=== PATIENT | male | born 1985 | race Two or more races ===

== ENCOUNTER 2019-11-04 00:59 | Emergency (ER) | payer OTHER ==
--- NOTE | 2019-11-04 01:26 | EDM.PDOC ---
ED HPI GENERAL MEDICAL PROBLEM - General Chief Complaint: Wound Recheck Stated Complaint: PAIN POST SURGERY Time Seen by Provider: 11/04/19 01:22 Source of Information: Reports: Patient History Limitations: Reports: No Limitations - History of Present Illness INITIAL COMMENTS - FREE TEXT/NARRATIVE: pt arrived with pain in his flank radiating to the groin. pt had a stent placed and letotrpsy on Tuesday. He was told that he had 2 stones removed and a stent was placed. Onset: Today, Other (pt had a sudden onset of flank and groin pain) Duration: Hour(s): Location: Reports: Abdomen, Back Associated Symptoms: Reports: No Other Symptoms Treatments PEDIATRIC PHYSIATRIST: Reports: Other Medication(s) Other Treatments PEDIATRIC PHYSIATRIST: oxycodone Right Flank Pain Score (Numeric/FACES): 2 - Related Data Allergies Allergy/AdvReac Type Severity Reaction Status Date / Time No Known Allergies Allergy Verified 11/04/19 01:19 ED ROS GENERAL - Review of Systems Review Of Systems: See Below Constitutional: Reports: No Symptoms HEENT: Reports: No Symptoms Respiratory: Reports: No Symptoms Cardiovascular: Reports: No Symptoms, Other Endocrine: Reports: No Symptoms GI/Abdominal: Reports: Abdominal Pain, Other (pt had flank pain and pain radiating to the groin. ) : Reports: Flank Pain, Hematuria, Other ( groin pain. ) Musculoskeletal: Reports: No Symptoms Skin: Reports: No Symptoms ED EXAM, GENERAL - Physical Exam Exam: See Below Free Text/Narrative:: pt arrived with a history of severe pain in the rt flank radiating to the groin. He is having very gross hematuria tonight. He is not on bblood thinners. He had lithotripsy and a stent placed on . He was told that 2 stones were removed. Exam Limited By: No Limitations General Appearance: Alert, Anxious, Mild Distress, Other (pt did have severe distress at home. ) Ears: Normal TMs Nose: Normal Inspection Throat/Mouth: Normal Inspection Head: Atraumatic Neck: Normal Inspection Respiratory/Chest: No Respiratory Distress Cardiovascular: Regular Rate, Rhythm GI/Abdominal: Soft, Non-Tender (Male) Exam: Other (pt had flank pain and rt groin pain earlier. ) Rectal (Males) Exam: Deferred Back Exam: CVA Tenderness (R) Extremities: Normal Inspection Course - Vital Signs Last Recorded V/S: Last Vital Signs Temp 36.3 C 11/04/19 01:23 Pulse 82 11/04/19 01:23 Resp 15 11/04/19 01:23 BP 154/93 H 11/04/19 01:23 Pulse Ox 98 11/04/19 01:23 - Orders/Labs/Meds Orders: Active Orders 24 hr Category Date Time Status CULTURE URINE [RM] Stat Lab 11/04/19 01:48 Received Sodium Chloride 0.9% [Normal Saline] 1,000 ml Med 11/04/19 01:45 Active IV ASDIRECTED cefTRIAXone [Rocephin] 1 gm Med 11/04/19 03:31 Active Sodium Chloride 0.9% [Normal Saline] 50 ml IV ONETIME Medication Orders Sodium Chloride (Normal Saline) 1,000 mls @ 999 mls/hr IV ASDIRECTED SARTHAK Last Admin: 11/04/19 02:41 Dose: 999 mls/hr Documented by: WILMAN Ceftriaxone Sodium 1 gm/ (Sodium Chloride) 50 mls @ 100 mls/hr IV ONETIME ONE Stop: 11/04/19 04:00 Labs: Laboratory Tests 11/04/19 Range/Units 01:55 WBC 12.9 H (4.5-11.0) K/uL RBC 4.66 (4.30-5.90) M/uL Hgb 14.3 (12.0-15.0) g/dL Hct 42.4 (40.0-54.0) % MCV 91 (80-98) fL MCH 31 (27-31) pg MCHC 34 (32-36) % Plt Count 108 L (150-400) K/uL Neut % (Auto) 65 (36-66) % Lymph % (Auto) 22 L (24-44) % [place] % (Auto) 13 H (2-6) % Eos % (Auto) 0 L (2-4) % Baso % (Auto) 0 (0-1) % Meds: Medications Generic Name Dose Route Start Last Admin Trade Name Freq PRN Reason Stop Dose Admin Sodium Chloride 1,000 mls @ 999 mls/hr 11/04/19 01:45 11/04/19 02:41 Normal Saline IV 999 mls/hr ASDIRECTED SARTHAK Administration Ceftriaxone Sodium 1 gm/ 50 mls @ 100 mls/hr 11/04/19 03:31 Sodium Chloride IV 11/04/19 04:00 ONETIME ONE - Re-Assessments/Exams Free Text/Narrative Re-Assessment/Exam: 11/04/19 02:20 cbc shows a good hg. His urine is very bloody. A culture was set up. 11/04/19 03:42 cat scan shows some stones in the rt kidney. The left kidney is normal. The stent apears to be in place. There are no stones in the ureter. There is stranding around the ureter. Departure - Departure Time of Disposition: 03:44 Disposition: Home, Self-Care 01 Condition: Fair Clinical Impression: Inflammatory reaction due to indwelling ureteral stent, Hematuria - Discharge Information Referrals: PCP,None [Primary Care Provider] - Forms: ED Department Discharge Care Plan Goals: push fluids, cipro 500mg bid, if persistent problems contact the urologist that did the procedure. Sepsis Event Note (ED) - Focused Exam Vital Signs: Vital Signs Temp Pulse Resp BP Pulse Ox 11/04/19 01:23 36.3 C 82 15 154/93 H 98 11/04/19 01:20 36.3 C 82 15 154/93 H 98 - My Orders Last 24 Hours: My Active Orders 11/04/19 01:45 Sodium Chloride 0.9% [Normal Saline] 1,000 ml IV ASDIRECTED 11/04/19 01:48 CULTURE URINE [RM] Stat 11/04/19 03:31 cefTRIAXone [Rocephin] 1 gm Sodium Chloride 0.9% [Normal Saline] 50 ml IV ONETIME - Assessment/Plan Last 24 Hours: My Active Orders 11/04/19 01:45 Sodium Chloride 0.9% [Normal Saline] 1,000 ml IV ASDIRECTED 11/04/19 01:48 CULTURE URINE [RM] Stat 11/04/19 03:31 cefTRIAXone [Rocephin] 1 gm Sodium Chloride 0.9% [Normal Saline] 50 ml IV ONETIME
[2019-11-04] MEDS ORDERED: Sodium Chloride 0.9% 1,000 ML IV SCH (01:45)
--- NOTE | 2019-11-04 03:30 | CRLCT ---
INDICATION: Hematuria. TECHNIQUE: CT abdomen and pelvis without contrast. COMPARISON: None. FINDINGS: Lower chest: No acute abnormality. Liver: Several subcentimeter low-attenuation lesions are too small to characterize. Spleen: Unremarkable. Pancreas: Unremarkable. Gallbladder and bile ducts: Unremarkable. Kidneys: The left kidney is normal. Right nephroureteral stent is in appropriate position. There are a couple of small calculi in the lower pole. Largest measures 3 mm. No right ureteral calculus identified. There is mild hydronephrosis. There is periureteral inflammatory fat stranding. Adrenal glands: Unremarkable. GI tract: No acute abnormality. Appendix is normal. Vascular structures: No abdominal aortic aneurysm. Lymph nodes: Unremarkable. Miscellaneous: No free air. Small amount of free fluid in the pelvis. Small fat containing umbilical hernia. Pelvic Organs: High-density in the urinary bladder adjacent to the coiled stent likely reflects blood products. No bladder wall thickening. Bones: No acute abnormality. No suspicious bone lesion. IMPRESSION: 1. Right nephroureteral stent with mild right hydronephrosis. Right periureteral fat stranding may be infectious or inflammatory. 2. Right nephrolithiasis. 3. High density within the urinary bladder adjacent to the coiled stent likely reflects blood products. 4. Small amount of free fluid in the pelvis. Dictated by Ric Posadas MD @ 11/04/2019 3:28:39 AM Please note that all CT scans at this facility use dose modulation, iterative reconstruction, and/or weight-based dosing when appropriate to reduce radiation dose to as low as reasonably achievable. Dictated by: Ric Posadas MD @ 11/04/2019 03:28:44 (Electronically Signed)
[2019-11-04] MEDS ORDERED: cefTRIAXone 1 GM in Sodium Chloride 0.9% 50 ML IV ONE (03:31)
[2019-11-04] MEDS ORDERED: Calcium Carbonate 500 MG Tab.Chew PO ONE (03:47)
== END 2019-11-04 04:30 | disposition home or self-care (01) ==
LOC: JP.ED 00:59
DX: T83.592A Infection and inflammatory reaction due to indwelling ureteral stent, initial encounter (principal)
CPT/HCPCS: 36415; 74176; 85025; 87086; 96361; 96365; 99284; A9270; J0696; J7030; J7050; 99283